=== PATIENT | male | born 1955 | race Caucasian/White ===

== ENCOUNTER → 2020-03-10 | Day surgery (SDC) | payer BC ==
[~2020-03-10] MED LIST: Ketamine 200 MG/20 ML MDV ONE; Lactated Ringers 1,000 ML IV SCH; Lidocaine 2% 5 ML SDV ONE; Propofol 200 MG/20 ML SDV ONE; fentaNYL 100 MCG/2 ML SDV ONE
--- NOTE | 2020-03-10 13:19 | OR ---
DATE OF OPERATION: 03/10/2020 PREOPERATIVE DIAGNOSIS: SCREENING COLONOSCOPY. POSTOPERATIVE DIAGNOSIS: SCREENING COLONOSCOPY. SURGEON: Duc Velez MD PROCEDURE: FULL-LENGTH COLONOSCOPY WITH FORCEPS POLYP REMOVAL X2. ANESTHESIA: MAC. COMPLICATIONS: None. SPECIMEN: Two small sessile polyps in rectal vault, likely hyperplastic. RECOMMENDATIONS: Followup colonoscopy in 5 years. FINDINGS: Mild sigmoid diverticulosis. INDICATIONS: The patient was in for a routine exam. He has never had a prior colonoscopy. We recommended a screening procedure. DESCRIPTION OF PROCEDURE: The patient was prepped and draped, placed in the left lateral decubitus position. A lubricated Olympus colonoscope was inserted and easily advanced to the cecum. We were able to directly visualize the ileocecal valve, palpate and visualize the light in the right lower quadrant. Upon withdrawal of the scope, the cecum, ascending, transverse, and descending colons were completely unremarkable. The patient does have mild diverticular disease in the sigmoid. No inflammatory changes were seen. The rectal vault in its mid and proximal portion had 2 small sessile polyps, both removed with the forceps in their entirety. Retroflexion showed no perianal lesions. Air was then suctioned and the scope removed without complication. TUYET/PEYMAN /[id number]
== END ==
LOC: CC.SDS 10:28
PROVIDERS: ATTEND Family Medicine
DX: Z12.11 Encounter for screening for malignant neoplasm of colon (principal); D12.8 Benign neoplasm of rectum; K57.30 Diverticulosis of large intestine without perforation or abscess without bleeding; E78.5 Hyperlipidemia, unspecified; I10 Essential (primary) hypertension; E11.9 Type 2 diabetes mellitus without complications; C61 Malignant neoplasm of prostate; Z01.812 Encounter for preprocedural laboratory examination; Z20.822 Contact with and (suspected) exposure to COVID-19; Z88.5 Allergy status to narcotic agent; Z79.82 Long term (current) use of aspirin; Z79.899 Other long term (current) drug therapy; Z79.4 Long term (current) use of insulin; Z90.89 Acquired absence of other organs
CPT/HCPCS: 00812; 82962; J2001; J2704; J3010; J7120; U0002